=== PATIENT | female | born 1970 | race Caucasian/White ===

== ENCOUNTER 2019-02-24 22:13 | Emergency (ER) | payer SELFPAY ==
[~2019-02-24] VITALS: Ht 152.4 cm; Wt 65.6 kg
[2019-02-24 22:53] VITALS: Ht 152.4 cm; Wt 65.6 kg
[2019-02-25 02:03] VITALS: BP 166/84; PULSE 83; RESP 18
[2019-02-25] MEDS ORDERED: IBUP-1561 PO (13:34)
[2019-02-25] MEDS ORDERED: ACET-141 PO (13:34)
== END 2019-02-25 02:08 | disposition left against medical advice (07) ==
LOC: FTE 22:13
DX: Z53.21 Procedure and treatment not carried out due to patient leaving prior to being seen by health care provider (principal)

== ENCOUNTER 2019-02-25 11:30 | Emergency (ER) | payer MEDICAID, OTHER ==
[~2019-02-25] VITALS: Wt 65.3 kg
[2019-02-25] MEDS ORDERED: KETOROLAC 30 MG INJ IM STA (12:02)
[2019-02-25] MEDS ORDERED: IBUP-1561 PO (13:34)
[2019-02-25] MEDS ORDERED: ACET-141 PO (13:34)
--- NOTE | 2019-02-25 13:36 | ERD ---
ER Documentation Chief Complaint Chief Complaint RIGHT SHOULDER PAIN X 1 WEEK ROS All systems reviewed and are negative except as per history of present illness. Medications Home Meds Active Scripts Ibuprofen* (Motrin*) 400 Mg Tab, 400 MG PO Q6H PRN for PAIN AND OR ELEVATED TEMP, #30 TAB Prov:ANGELA WEISS DO 02/25/19 Acetaminophen* (Acetaminophen*) 500 MG Extra Strength Tablet, 500 MG PO Q4H PRN for PAIN AND OR ELEVATED TEMP, #30 TAB Prov:ANGELA WEISS DO 02/25/19 Allergies Allergies: Coded Allergies: No Known Allergy (Unverified , 02/24/19) PMhx/Soc History of Surgery: No Anesthesia Reaction: No Hx Neurological Disorder: No Hx Respiratory Disorders: No Hx Cardiac Disorders: No Hx Psychiatric Problems: No Hx Miscellaneous Medical Probl: No Hx Alcohol Use: No Hx Substance Use: No Hx Tobacco Use: No Smoking Status: Never smoker Physical Exam Vitals Vital Signs Date Temp Pulse Resp B/P (MAP) Pulse Ox O2 O2 Flow FiO2 Time Delivery Rate 02/25/19 98.4 93 18 187/88 99 11:32 (121) Physical Exam Const: No acute distress Head: Atraumatic Eyes: Normal Conjunctiva ENT: Normal External Ears, Nose and Mouth. Neck: Full range of motion. No meningismus. Resp: Clear to auscultation bilaterally Cardio: Regular rate and rhythm, no murmurs Abd: Soft, non tender, non distended. Normal bowel sounds Skin: No petechiae or rashes Back: No midline or flank tenderness Ext: No cyanosis, or edema Neur: Awake and alert Psych: Normal Mood and Affect Results 24 hrs Laboratory Tests Test 02/25/19 12:24 POC Beta HCG, Qualitative NEGATIVE Current Medications Medications Dose Sig/Rosita Start Time Status Last (Trade) Ordered Route PRN Stop Time Admin Dose Reason Admin Ketorolac 30 mg ONCE STAT 02/25/19 DC 02/25/19 Tromethamine IM 12:02 12:31 (Toradol) 02/25/19 12:04 Departure Diagnosis: Primary Impression: Shoulder pain Chronicity: acute Laterality: right Qualified Codes: M25.511 - Pain in right shoulder Condition: Fair Patient Instructions: Shoulder Problems, Shoulder Pain (Uncertain Cause) Referrals: [facility] YOU HAVE RECEIVED A MEDICAL SCREENING EXAM AND THE RESULTS INDICATE THAT YOU DO NOT HAVE A CONDITION THAT REQUIRES URGENT TREATMENT IN THE EMERGENCY DEPARTMENT. FURTHER EVALUATION AND TREATMENT OF YOUR CONDITION CAN WAIT UNTIL YOU ARE SEEN IN YOUR DOCTORS OFFICE WITHIN THE NEXT 1-2 DAYS. IT IS YOUR RESPONSIBILITY TO MAKE AN APPOINTMENT FOR FOLOW-UP CARE. IF YOU HAVE A PRIMARY DOCTOR --you should call your primary doctor and schedule an appointment IF YOU DO NOT HAVE A PRIMARY DOCTOR YOU CAN CALL OUR PHYSICIAN REFERRAL HOTLINE AT IF YOU CAN NOT AFFORD TO SEE A PHYSICIAN YOU CAN CHOSE FROM THE FOLLOWING FORMERLY [facility] [address] [facility] [address] [facility] [facility] [address] [facility] [address] [facility] [address] [facility] [facility]. [address] Additional Instructions: Llame al doctor MAANA y dolly crow SUZI PARA DENTRO DE 1-2 CUEVAS.Dgale a la secretaria que nosotros le instruimos hacer esta suzi.Avise o llame si veliz condicin se empeora antes de la suzi. Regresa aqui si peor o no mejor. Recommend warm compressions Range of motion exercises when pain decreases Follow up with PCP for referral to physical therapy ANGELA WEISS DO February 25, 2019 13:36
[2019-02-25 14:06] VITALS: BP 174/82; PULSE 85; RESP 16
== END 2019-02-25 13:50 | disposition home or self-care (01) ==
LOC: FTE 11:30
DX: M25.511 Pain in right shoulder (principal)
CPT/HCPCS: 73030; 81025; J1885; 96372